=== PATIENT | female | born 1965 | race Caucasian/White ===

== ENCOUNTER 2018-04-09 08:49 | Outpatient (CLI) | payer OTHER | END 2018-04-09 16:58 | disposition home or self-care (01) | LOC: NUCLEAR 08:49 | DX: C50.211 Malignant neoplasm of upper-inner quadrant of right female breast (principal); C78.1 Secondary malignant neoplasm of mediastinum | CPT/HCPCS: 78815; A9552 ==

== ENCOUNTER 2018-10-27 11:40 | Outpatient (CLI) | payer OTHER | END 2018-10-27 12:00 | disposition home or self-care (01) | LOC: NUCLEAR 11:40 | DX: C50.211 Malignant neoplasm of upper-inner quadrant of right female breast (principal); C79.51 Secondary malignant neoplasm of bone; Z08 Encounter for follow-up examination after completed treatment for malignant neoplasm | CPT/HCPCS: 78815; A9552 ==